=== PATIENT | female | born 1945 | race Caucasian/White ===

== ENCOUNTER 2016-10-20 12:17 | Emergency (ER) | payer OTHER ==
[~2016-10-20] VITALS: Ht 162.6 cm; Wt 114.0 kg
[2016-10-20] MEDS ORDERED: MOTRIN800 MG PO (15:20)
[2016-10-20] MEDS ORDERED: PREDNISONE20 MG PO (15:20)
[2016-10-20] MEDS ORDERED: FLEXERIL10 MG PO (15:20)
[2016-10-20] MEDS ORDERED: PERCOCET 5/31 TABLET PO (16:47)
[2016-10-20 17:00] VITALS: BP 116/77
== END 2016-10-20 17:01 | disposition home or self-care (01) ==
LOC: EME 12:17
DX: M54.5 Low back pain (principal); R51 Headache; S16.1XXA Strain of muscle, fascia and tendon at neck level, initial encounter; W22.8XXA Striking against or struck by other objects, initial encounter
CPT/HCPCS: 70450; 72040; 72100; 99281; 99283; J1885; J7512